=== PATIENT | male | born 1950 | race Caucasian/White ===

== ENCOUNTER 2017-05-21 10:12 | Emergency (ER) | payer MEDICARE, MEDICAID ==
[~2017-05-21] VITALS: Ht 188 cm; Wt 113.4 kg
[2017-05-21 10:55] VITALS: BP 139/90
== END 2017-05-21 11:05 | disposition home or self-care (01) ==
LOC: ER 10:12
DX: H66.91 Otitis media, unspecified, right ear (principal); E11.42 Type 2 diabetes mellitus with diabetic polyneuropathy; E78.5 Hyperlipidemia, unspecified